=== PATIENT | male | born 1955 | race Caucasian/White ===

== ENCOUNTER → 2016-08-27 | Outpatient (CLI) | payer OTHER, BC ==
[~2016-08-27] MED LIST: ASCORBIC ACID500 MG PO; ASPIRIN325 MG PO; CELEBREX200 MG PO; MIRALAX PACKET17 GM PO; OXY IR DPS5 MG PO; PROTONIX40 MG PO; SENOKOT S1 TAB PO; TYLENOL DPS325 MG PO; ULTRAM DPS50 MG PO
--- NOTE | 2016-09-20 07:14 | HP ---
ADMIT: 08/27/2016 RM/LOC: [facility] MR#: [id number] ACC#: [id number] [address] [id number] KEL [address] [place] [address] History and Physical SEX: M AGE: 61 : 1955 DATE OF SERVICE: REASON FOR CONSULT: Preoperative clearance. HISTORY OF PRESENT ILLNESS: This is a 61-year-old white male, who has an unremarkable past medical history, who has longstanding history of right hip DJD. He has got to the point where he just cannot get around without significant discomfort. He has failed conservative therapy. Last resort was a left hip arthroplasty, and he is scheduled to go on September 08. He denies any other specific concerns or complaints. No recent chest pain, fevers, or chills. He is due for screening colonoscopy. PAST MEDICAL HISTORY: Remarkable for previous procedure and varicose vein stripping, but no other chronic illnesses. MEDICATIONS: Includes: 1. Aleve p.r.n. 2. Ibuprofen p.r.n. 3. Aspirin 81 mg daily. 4. Vitamin C 500 mg daily. 5. Turmeric root daily. ALLERGIES: NONE. FAMILY HISTORY: Father has diabetes and coronary artery disease, still living. Mother in good health, other than obesity. SOCIAL HISTORY: He does not smoke. Occasional alcohol use. He works in schools. REVIEW OF SYSTEMS: GENERAL: No fevers or chills. HEENT: No headaches, blurry vision, or double vision. CARDIAC: No chest pains or shortness of breath. GI: No nausea, vomiting, diarrhea, or constipation. : No dysuria, urgency, or frequency. ENDOCRINE: No polyuria or polydipsia. PSYCH: No depression. INTEGUMENTARY: No new rashes. All others are negative. PHYSICAL EXAMINATION: VITAL SIGNS: Blood pressure is 116/64, pulse 73, respirations 18, temperature 96.9. GENERAL: He is in no acute distress. He is alert and oriented. HEENT: Pupils are reactive. Conjunctivae are clear. Clear nasal mucosa. Clear oropharynx. Moist mucous membranes. NECK: Soft and supple without lymphadenopathy. No thyromegaly. LUNGS: Clear to auscultation with good respiratory effort. HEART: Regular rate and rhythm. ADMIT: 08/27/2016 [facility] [id number] [address] [address] [facility] [address] [place] [address] History and Physical SEX: M AGE: 61 : 1955 ABDOMEN: Soft, nontender. EXTREMITIES: No cyanosis. No clubbing. No edema. SKIN: No rash. NEUROLOGIC: Cranial nerves II through XII are grossly intact. No focal deficits. LABORATORY AND X-RAY DATA: White count 5200, hemoglobin 14.0, platelets 252,000. Sodium 141, potassium 4.9, chloride 106, CO2 of 32, BUN 15, creatinine 0.9, glucose 101, calcium 8.9. ASSESSMENT: Left hip degenerative joint disease. PLAN: He has no symptoms of acute illness. I would recommend proceeding with the procedure as scheduled. We will do enteric-coated aspirin 325 mg daily for 6 weeks postoperative for DVT prophylaxis. Bob Ghosh MD/ rosa maria JOB #: [id number] CC: Christiano Vaughan, Attending Physician Bob Ghosh, Family Physician
== END | disposition home or self-care (01) ==
LOC: PTH.S 10:55
DX: Z01.812 Encounter for preprocedural laboratory examination (principal)

== ENCOUNTER 2016-09-08 06:57 | Inpatient (IN) | payer OTHER ==
[~2016-09-08] VITALS: Ht 179.1 cm; Wt 100.0 kg
[2016-09-10] MEDS ORDERED: CELEBREX200 MG PO (18:39)
[2016-09-10] MEDS ORDERED: ASPIRIN325 MG PO (18:39)
[2016-09-10] MEDS ORDERED: MIRALAX PACKET17 GM PO (18:43)
[2016-09-10] MEDS ORDERED: ASCORBIC ACID500 MG PO (18:43)
[2016-09-10] MEDS ORDERED: SENOKOT S1 TAB PO (18:44)
[2016-09-10] MEDS ORDERED: OXY IR DPS5 MG PO (18:44)
[2016-09-10] MEDS ORDERED: TYLENOL DPS325 MG PO (18:44)
[2016-09-10] MEDS ORDERED: PROTONIX40 MG PO (18:44)
[2016-09-10] MEDS ORDERED: ULTRAM DPS50 MG PO ×2 (18:45)
--- NOTE | 2016-09-23 16:20 | OR ---
ADMIT: 09/08/2016 RM/LOC: 509 [facility] MR#: [id number] [address] [address] [address] [place] [address] Operative/Delivery Room Report SEX: M AGE: 61 : 1955 SURGERY DATE: 09/08/2016 SURGEON: Christiano Vaughan MD MASTER CRAFTSMAN: Jefe Chavez PA-C PREOPERATIVE DIAGNOSIS: Left hip degenerative joint disease. POSTOPERATIVE DIAGNOSIS: Left hip degenerative joint disease. PROCEDURES: 1. Left anterior total hip arthroplasty. 2. Intra-articular block. ANESTHESIA: Spinal. COMPLICATIONS: None. ESTIMATED BLOOD LOSS: 250 mL. COMPONENTS: 1. A 60 mm Gription pinnacle cup. 2. 36-mm Neutral AltrX liner. 3. 15 mm standard offset Corail broach. 4. 8.5 x 36 mm ceramic head. DESCRIPTION OF PROCEDURE: The patient was taken to the operating room. The correct hip was identified and marked in the preop holding area. The preoperative leg lengths were documented. The patient received a spinal anesthetic. At that point, the patient had traction boots applied. The patient was placed on the [place] operative table. A perfect fluoroscopic AP pelvis was obtained along with a perfect AP of the operative hip and printed for preoperative templating purposes. At that point, the left hip was prepped and draped in a standard fashion and an anterior approach was performed. An incision was made lateral and inferior to the anterior superior iliac spine extending distally. Dissection was carried through subcutaneous tissue down to the tensor fascia. The fibers of the tensor fascia were identified in oblique fashion. The tensor fascia was then opened up along its muscle fibers. An Allis clamp was placed on the anterior fascial border. The tensor muscle itself was then swept off with blunt dissection and retracted posteriorly. At that point, the rectus was elevated off the anterior hip capsule. The lateral circumflex vessels were identified and cauterized. A Cobra retractor was placed above the superior femoral neck to retract the tensor posteriorly. The rest of the rectus was elevated off the anterior hip capsule and a second retractor was placed around the medial femoral neck. An L-shaped capsulotomy was performed through the hip capsule down to the intertrochanteric line and extended along the intertrochanteric line to the level of the lesser trochanter. Tag stitches were placed in the medial and lateral border of the hip capsule. We also released the superior hip capsule out of the trochanteric ADMIT: 09/08/2016 RM/LOC: 509 [facility] MR#: [id number] [address] [address] [place] K[address] [place] [address] Operative/Delivery Room Report SEX: M AGE: 61 : 1955 shoulder region. At that point, we placed our Cobra retractors in an intra- articular fashion for improved exposure to complete our capsular releases intra-articularly. A femoral neck cut was then made based on templating using the trochanteric shoulder as a bony landmark. We then externally rotated the hip 20 degrees for improved exposure and removed the femoral head from the acetabulum with no undue difficulty. Once the femoral head was removed, we again completed our capsular release around the inferior femoral neck to the level of lesser trochanter, released the superior capsule off the greater trochanteric shoulder in its entirety. We then placed slight traction on the femur in 20 degrees external rotation and placed a blunt-tip Cobra retractor over the anterior acetabular border. A second blunt Cobra was placed around the posterior acetabular border. All the remaining labrum was excised and an episiotomy performed to the inferior capsule to improve exposure. We cauterized the fovea and removed any remaining tissue in the depth of the acetabulum. We sequentially reamed the acetabulum under direct visualization up to a 59-mm size reamer. We elected to use a 60-mm Gription pinnacle cup. We put the acetabular component on a curved tower cleaner and placed it within the depths of the acetabulum. At that point we removed all retractors; brought in fluoroscopy; and again obtained a perfect AP of the pelvis followed by a perfect AP of the hip. Under fluoroscopic guidance, we impacted the acetabular component in approximately 45 degrees of inclination and 20 degrees of anteversion. We had an excellent press fit and no supplemental screws were required. Any peripheral osteophytes were circumferentially removed around the acetabular component. A hole eliminator was placed in the acetabular component and a neutral 36-mm AltrX liner was impacted within the acetabular component. A partial intra-articular block was performed at this point in time. Once our acetabular preparation was completed, all the acetabular retractors were removed. We then exposed the femur by rotating it into neutral position and taking all traction off the femur. A femoral elevating hook was placed posterior to the trochanteric ridge. The foot was dropped down to 45 degrees and the leg maximally externally rotated no undue tension. We made sure our inferior capsular release was complete and placed a #1 retractor over the tip of the trochanter. Any remaining capsule was released off the tip of the trochanter and the piriformis tendon and a conjoined tendon were also released for exposure. At that point, you could feel the femur give, and we were able to elevate it up and out of the wound. The femur was externally rotated to approximately 120 degrees and the foot dropped to the floor as the leg was adducted. The trochanteric elevating hook was manually pulled in the anterior lateral direction as the elevating bar was raised to support it. At that point, we had excellent femoral exposure. A [place] retractor was placed over the tip of the trochanter and a femoral neck retractor around the medial calcar region to improve exposure. The proximal femur was opened with a box osteotome and a canal finder was used to identify the femoral canal. The proximal femur was sequentially broached up to a 15 mm Corail broach. We did overream the distal canal to be sure we did not have a distal femoral fit. At that point, we left the broach in the canal and calcar planed the neck. We then reduced the hip with a standard off-set 8.5 head and neck. All the retractors and femoral hook were removed. Using manual traction, we were able ADMIT: 09/08/2016 RM/LOC: 509 [facility] MR#: [id number] [address] [address] [address] [place] [address] Operative/Delivery Room Report SEX: M AGE: 61 : 1955 to reduce the hip into the acetabulum with no undue difficulty. A perfect fluoroscopic AP of the pelvis followed by a perfect AP of the hip was obtained and appropriate leg length and offset were confirmed. We replaced our femoral elevating hook posterior to the trochanter. A bone hook and manual traction were used to dislocate the hip, again externally rotating the femur in its entirety as the foot was dropped to the floor and leg adducted. We removed the trial components, replaced a Art retractor, and a femoral neck retractor. The broach was removed and the appropriate real components opened. We then impacted a size 15-mm Corail stem down the femoral canal with excellent press- fit. We impacted a +8.5 x 36 mm ceramic head on the trunnion. All retractors were removed, using manual traction the hip was reduced, and again was found to be stable. A final fluoroscopic AP pelvis and AP hip was obtained to confirm appropriate leg length, offset, and component positioning. We then irrigated out the wounds thoroughly and repaired the anterior capsular structures with #5 Ti-Cron. Our intra-articular block was completed including all soft tissues. The tensor fascia was repaired with a running and interrupted 0 Vicryl suture. We closed subQ with 2-0 Vicryl and ran a subcuticular Monocryl stitch. A Prineo hip wound dressing was applied and sterile dressings applied. The patient was taken off the [place] table, transferred to a standard OR bed, and taken to the recovery room in stable condition with no complications. Christiano Vaughan MD/ rosa maria JOB #: [id number] CC: Christiano Vaughan, Attending Physician Bob Ghosh, Family Physician
--- NOTE | 2016-09-26 08:57 | HP ---
ADMIT: 09/08/2016 RM/LOC: W.02 [facility] MR#: [id number] ACC#: [id number] [address] [address] [address] [place] [address] Pre-OP History and Physical SEX: M AGE: 61 : 1955 DATE OF SERVICE: CHIEF COMPLAINT: Hip pain. HISTORY OF PRESENT ILLNESS: The patient is a 61-year-old male with long- standing history of left hip pain. Left hip pain limits his activity. He has failed conservative care. He had a work aggravation of a pre-existing condition; it has not resolved. Now, being admitted for left total hip arthroplasty. PAST MEDICAL HISTORY: Include a skin cancer. MEDICATIONS: Include Aleve and ibuprofen. ALLERGIES: NONE. SOCIAL HISTORY: Denies any significant tobacco or alcohol use. REVIEW OF SYSTEMS: Negative. PHYSICAL EXAMINATION: Healthy-appearing male, in no acute distress. Walks with antalgic gait on the left lower extremity. Pain with any motion of the left hip. We can only internally rotate to 0, externally rotate to 30, flex to 100. Range of motion reproduces his symptoms. Legs are otherwise neurovascularly intact. No back pain. DIAGNOSTIC DATA: X-rays AP and lateral show advanced left hip arthritis. No joint space remaining. IMPRESSION: Advanced left hip degenerative joint disease. Work aggravated. PLAN: Talked about different options. Failed conservative care. Plan on doing a left anterior total hip arthroplasty. He is aware of different risks, benefits, and options and agreed to proceed. He has been seen and cleared from a medical standpoint. Christiano Vaughan MD/ rosa maria JOB #: [id number] CC: Christiano Vaughan, Attending Physician UNKNOWN, Family Physician
--- NOTE | 2016-09-26 08:57 | DS ---
ADMIT: 09/08/2016 RM/LOC: 509 [facility] MR#: [id number] [address] [place] [id number] [address] [place] [address] General Discharge Summary SEX: M AGE: 61 : 1955 ADMISSION DATE: 09/08/2016 DISCHARGE DATE: 09/09/2016 REASON FOR ADMISSION: Elective left total hip arthroplasty after failing conservative care. PAST MEDICAL HISTORY: Includes skin cancer. PREOPERATIVE DIAGNOSIS: Left hip degenerative joint disease. POSTOPERATIVE DIAGNOSIS: Left hip degenerative joint disease. PROCEDURE PERFORMED: Left anterior total hip arthroplasty. ANESTHESIA: Spinal. COMPLICATIONS: None. ESTIMATED BLOOD LOSS: 250 mL. ADMINISTRATIVE NURSING SUPERVISOR: Jefe Chavez PA-C HOSPITAL COURSE: The patient was admitted on 09/08/2016 for elective left total hip arthroplasty after failing conservative care done by Dr. Vaughan without any complications. The patient tolerated the procedure well. Postoperatively, he did well with pain control. As expected, he did suffer acute blood loss anemia. His hemoglobin dropped to 10.4 on 09/09/2016, but he remained hemodynamically stable and did not require blood transfusion. By postoperative day #1, he was doing well. He was safe, stable, and participating well with physical therapy. He was ready for discharge home with plans for outpatient physical therapy exercise per anterior total hip arthroplasty protocol. DISCHARGE MEDICATIONS: 1. Aspirin 325 mg at bedtime for 6 weeks. 2. Celebrex 200 mg twice daily for 2 days. 3. Turmeric root 5 mL in the evening. 4. Plexus Slim 5 g every day. 5. MiraLax 17 g every day. ADMIT: 09/08/2016 RM/LOC: 509 [facility] MR#: [id number] [address] [place] [id number] [address] [place] [address] General Discharge Summary SEX: M AGE: 61 : 1955 6. Vitamin C 500 mg everyday. 7. Oxycodone 5 mg 1 to 2 tablets every 4 to 6 hours as needed for pain. 8. Protonix 40 mg at bedtime for 6 weeks. 9. Senokot 2 tablets at bedtime for 1 month. 10.Tylenol 325 mg 1 to 2 tablets every 6 hours as needed. 11.Ultram 50 mg 2 tablets every 6 hours for 3 days then 1 to 2 tablets every 6 hours as needed for pain. DISCHARGE INSTRUCTIONS: The patient was discharged home with plans for outpatient physical therapy exercises per anterior total hip arthroplasty protocol. Follow up in the orthopedic office in 2 weeks for wound check, in 6 weeks with x-ray. Follow up with primary care as directed. KHADRA Bello / Christiano Vaughan MD / rosa maria JOB #: [id number] CC: Christiano Vaughan MD, Attending Physician Bob Ghosh MD, Family Physician
== END 2016-09-09 16:00 | disposition home or self-care (01) | DRG 470 ==
LOC: WOR 06:57 → 5MS 06:57
PROVIDERS: ADMIT Orthopaedic Surgery
PROC: 0SRB04A Replacement of Left Hip Joint with Ceramic on Polyethylene Synthetic Substitute, Uncemented, Open Approach (ICD-10-PCS; principal; 2016-09-08)
DX: M16.12 Unilateral primary osteoarthritis, left hip (principal); D62 Acute posthemorrhagic anemia; Z85.828 Personal history of other malignant neoplasm of skin